=== PATIENT | male | born 1970 | race Caucasian/White ===

== ENCOUNTER 2016-07-13 02:33 | Emergency (ER) | payer MEDICARE, MEDICAID ==
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
== END 2016-07-13 06:05 | disposition home or self-care (01) ==
LOC: ER 02:33
DX: F10.129 Alcohol abuse with intoxication, unspecified (principal); Z88.0 Allergy status to penicillin